=== PATIENT | female | born 1995 | race Caucasian/White ===

== ENCOUNTER 2017-04-17 04:15 | Inpatient (IN) | payer OTHER ==
[~2017-04-17] VITALS: Ht 180.3 cm; Wt 100.0 kg
[2017-04-17 04:23] VITALS: Ht 180.3 cm; Wt 100.0 kg
[2017-04-17] MEDS ORDERED: ONDANSETRON 4 MG INJ IV ONE (04:59)
--- NOTE | 2017-04-17 05:35 | ERD ---
ER Documentation Chief Complaint Chief Complaint Transferred from [place] for RUQ pain. HPI 21-year-old female transferred to [place] for biliary colic. Capitated to [facility]. Started symptomology 24 hours ago with right upper quadrant pain. Found to have gallstones. Mild nausea one episode of vomiting which is nonbilious. No other current issues ROS All systems reviewed and are negative except as per history of present illness. Allergies Allergies: Coded Allergies: No Known Allergy (Unverified , 04/17/17) PMhx/Soc Medical and Surgical Hx: pt denies Medical Hx, pt denies Surgical Hx Hx Alcohol Use: No Hx Substance Use: No Hx Tobacco Use: No Smoking Status: Never smoker Physical Exam Vitals Vital Signs Date Time Temp Pulse Resp B/P Pulse Ox O2 Delivery O2 Flow Rate FiO2 04/17/17 04:23 98.2 87 18 123/84 100 Physical Exam Const: [] Head: Atraumatic Eyes: Normal Conjunctiva ENT: Normal External Ears, Nose and Mouth. Neck: Full range of motion..~ No meningismus. Resp: Clear to auscultation bilaterally Cardio: Regular rate and rhythm, no murmurs Abd: Soft, non tender, non distended. Normal bowel sounds Skin: No petechiae or rashes Back: No midline or flank tenderness Ext: No cyanosis, or edema Neur: Awake and alert Psych: Normal Mood and Affect Results 24 hrs Current Medications Medications (Trade) Dose Ordered Sig/Andressa Route PRN Reason Start Time Stop Time Status Last Admin Dose Admin Ondansetron HCl (Zofran Inj) 4 mg ONCE ONCE IV 04/17/17 04:59 04/17/17 05:00 DC 04/17/17 05:02 Procedures/MDM Assessment: 23-year-old female That developed respiratory for biliary colic. Hospitalist made aware Departure Diagnosis: Primary Impression: Abdominal pain Abdominal location: unspecified location Qualified Code: R10.9 - Abdominal pain, unspecified abdominal location Condition: Serious BRITNEY ACKERMANCuco Apr 17, 2017 05:35
[2017-04-17 07:23] VITALS: BP 96/51; RESP 18
[2017-04-17] MEDS ORDERED: morphine 2 MG INJ IV PRN (10:00)
[2017-04-17] MEDS ORDERED: SOD CHLORIDE 0.9% 500 ML IV ONE (10:00)
--- NOTE | 2017-04-17 10:03 | HP ---
Date/Time of Note Date/Time of Note DATE: 04/17/17 TIME: 10:03 Assessment/Plan VTE Prophylaxis VTE Prophylaxis Intervention: ambulation, SCD's Lines/Catheters IV Catheter Type (from [facility]): Saline Lock Assessment/Plan Chief Complaint/Hosp Course This is a 21-year-old female with no significant past medical history, who presented to outside hospital for evaluation of right-sided abdominal pain with associated nausea and nonbilious, nonbloody vomiting which has been going on for 3 weeks. 1. Symptomatic cholelithiasis with possible acute cholecystitis. Outside hospital ultrasound showed cholelithiasis with mild gallbladder wall thickening. There was no evidence of choledocholithiasis. -Admit as inpatient -Obtain CT abdomen/pelvis. -Surgery consult. -N.p.o., IV fluids, pain control, antiemetics PRN and broad-spectrum IV antibiotics as there is high suspicion for acute cholecystitis. 2. Transaminase elevation, likely secondary to #1. No bilirubinemia. No evidence to suggest choledocholithiasis. 3. Anemia, this is likely dilutional. H&H stable. Will continue to monitor. Prophylaxis: SCD/Pepcid. Rest of the management depend on hospital course, findings of CT, and input from surgery consult recommendations. Approximately 60 minutes was spent on this history and physical. Patient was seen in collaboration with Dr. Torres. Problems: HPI/ROS Admit Date/Time Admit Date/Time Apr 17, 2017 at 05:09 Hx of Present Illness This is a 21-year-old female with no significant past medical history, who initially presented to [facility] for evaluation of right-sided abdominal pain with associated nausea and nonbilious, nonbloody vomiting which has been going on for 3 weeks. Patient was diagnosed with gallstones by ultrasound and was transferred to [facility] for insurance reasons. In my encounter with the patient, she denied any hematemesis, hematochezia, melena, fever, chills, dizziness, headache, loss of consciousness, chest pain, palpitation, shortness of breath or other constitutional symptoms. Currently she does not have any nausea or vomiting. She continued to have right-sided abdominal pain which she states 6 out of 10. Upon review of the chart from outside hospital showed stable vital signs. Ultrasound abdomen with multiple calcified gallstones with mild gallbladder wall thickening measuring up to 4 mm. There was no intrahepatic biliary dilatation. There is no pericholecystic fluid. Labs showed mildly elevated AST 36. There was no bilirubinemia. CBC and BMP within acceptable range. There was no leukocytosis. A repeat lab was done at [facility] showed hemoglobin 11.8, hematocrit 35.6, elevated AST 141 and ALT 131. ROS A 12 point review of system was assessed and is negative other than what is mentioned in the HPI. PMH/Family/Social Past Medical History See HPI Past Surgical History See HPI Social History Patient denied any history of alcohol, smoking or illicit drug use Smoking Status: Never smoker Exam/Review of Systems Vital Signs Vitals Vital Signs Date Time Temp Pulse Resp B/P Pulse Ox O2 Delivery O2 Flow Rate FiO2 04/17/17 07:23 98.0 85 18 96/51 98 Exam Exam General: Well developed,adequately built, not in any acute distress . HEENT: Normocephalic, Atraumatic, No laceration or hematoma; Eyes: PEERL, Conjunctiva clear, Anicteric sclera Neck: Supple without any lymphadenopathy, nontender, no JVD, no carotid bruits, trachea midline, no thyromegaly Cardiac: S1, S2 auscultated, regular rhythm and rate, no mumurs or gallop Pulmonary: Normal respiratory effort. Chest clear to auscultation bilaterally, no adventitious breath sounds GI: Tenderness to right upper and lower quadrant. No rebound tenderness. Abdomen normal to inspection. Soft, non- distended, no masses, no rebound tenderness or guarding. Bowel sounds active on all four quadrants Genitourinary: Deferred Extremities: No cyanosis, clubbing, or edema. Pulses [2+] bilaterally. Full ROM on all four extremities. No focal weakness appreciated. Neurologic: Alert to person, place, time, and situation. Affect appropriate, intact sensation. Skin: Clean,dry, and intact. No ecchymosis, no rashes, or lesions Medications Medications Current Medications Sodium Chloride 500 ml @ 500 mls/hr Q1H ONCE IV ; Start 04/17/17 at 10:00; Stop 04/17/17 at 10:59 Sodium Chloride (NS) 1,000 ml @ 75 mls/hr [id number] IV ; Start 04/17/17 at 10:00 Morphine Sulfate (morphine) 2 mg Q4H PRN IV PAIN; Start 04/17/17 at 10:00 SABRINA BECKWITH NP Apr 17, 2017 10:03
[2017-04-17] MEDS ORDERED: ACETAMINOPHEN 650 MG SUPP PR PRN (10:30)
[2017-04-17] MEDS ORDERED: NACL 0.9% 3 ML SYG IV SCH (10:30)
[2017-04-17] MEDS ORDERED: ONDANSETRON 4 MG INJ IV PRN (10:30)
[2017-04-17 11:16] LABS: BASOPHILS % 0.2 % (0.0-2.0); EOSINOPHILS % 0.6 % (0.0-7.0); HEMATOCRIT 35.6 % (37.0-47.0); HEMOGLOBIN 11.8 g/dl (12.0-16.0); LYMPHOCYTES # 1.3 10^3/ul (0.8-2.9); LYMPHOCYTES % 26.5 % (18.0-55.0); MEAN CORPUSCULAR HEMOGLOBIN 29.1 pg (29.0-33.0); MEAN CORPUSCULAR HGB CONC 33.1 g/dl (32.0-37.0); MEAN CORPUSCULAR VOLUME 87.7 fl (72.0-104.0); MONOCYTE # 0.4 10^3/ul (0.3-0.9); MONOCYTES % 8.4 % (0.0-13.0); NEUTROPHIL # 3.2 10^3/ul (1.6-7.5); NEUTROPHILS % 64.1 % (30.0-74.0); PLATELET COUNT 179 10^3/UL (140-415); RED BLOOD COUNT 4.06 10^6/ul (4.20-5.40); RED CELL DISTRIBUTION WIDTH 13.3 % (11.5-14.5)
[2017-04-17] MEDS: SOD CHLORIDE 0.9% 1,000 ML IV SCH ×2 (11:17→23:20)
[2017-04-17 11:37] LABS: ALBUMIN/GLOBULIN RATIO 1.37; BILIRUBIN,INDIRECT 0.6 mg/dl (0-1.1); BILIRUBIN,TOTAL 0.6 mg/dl (0.2-1.3); CALCIUM 9.2 mg/dl (8.4-10.2); CHOL/HDL RATIO 2.7 RATIO; CREATININE 0.68 mg/dl (0.44-1.00); MAGNESIUM 1.9 mg/dl (1.7-2.5); POTASSIUM 4.1 mmol/L (3.5-5.1); TOTAL PROTEIN 6.9 g/dl (6.1-8.1)
[2017-04-17 12:07] LABS: THYROID STIMULATING HORMONE 1.21 MIU/L (0.465-4.680)
--- NOTE | 2017-04-17 14:27 | RADRPT ---
PROCEDURE: CT ABDOMEN AND PELVIS WITHOUT CONTRAST. CLINICAL INDICATION: Abdominal pain TECHNIQUE: CT scan of the abdomen and pelvis without contrast was performed on a multidetector hig h-resolution CT scanner. The patient was scanned without intravenous contrast. Coronal and sagittal reformatted images were obtained from the axial source images. Images were reviewed on a high-resol [employer] PACS workstation. The total exam CTDI equals 19.3 mGy and the total exam DLP equals 1199.8 mGy -cm. One or more of the following dose reduction techniques were used: Automated exposure control. Adjustment of the mA and/or kV according to patient size. Use of iterative reconstruction technique. DICOM images are available COMPARISON: None FINDINGS: CT abdomen: The lung bases are clear. The heart size is within limits. There is no significant pericardial effus ion. Hepatic morphology is within limits. There is diffuse fatty infiltration of the liver. The gallbladd er is distended, containing cholesterol stones and pericholecystic fluid. There is thickening of the gallbladder wall. No evidence of intrahepatic dilatation. Common bile duct is normal size. The spleen and pancreas are within normal limits. Both adrenal glands are within normal limits. Both kidneys are in normal anatomic position. No evidence of obstruction or hydronephrosis. No gross renal/ureteric calculi. The visualized GI tract demonstrate normal caliber loops of small and large bowel. No evidence of mariela wel obstruction. The appendix is within normal limits. The unenhanced aorta is unremarkable. No significant retroperitoneal lymphadenopathy. CT pelvis: The bladder is within limits. The uterus is retroverted, containing a intrauterine device. No gross adnexal masses. Probable ovarian cysts. The rectosigmoid colon is unremarkable. No significant free fluid. No pelvic lymphadenopathy. The visualized osseous structures, appears to be within normal limits. IMPRESSION: 1. Distended gallbladder, containing cholesterol stones and pericholecystic fluid and thickening of the gallbladder wall. FINDINGS ARE HIGHLY CONCERNING FOR ACUTE CHOLECYSTITIS. No evidence of intrahe patic biliary dilatation. Common bile duct appears to be within normal limits. 2. Fatty liver. 3. No evidence of bowel obstruction. The appendix is within normal limits. 4. Retroverted uterus, containing IUD. RPTAT: AAPP Navarro Matson Physician Date Time Electronically viewed and signed by Navarro Matson Physician on 04/17/2017 14:26 JL/
[2017-04-17] MEDS: PIPER-TAZO 3.375 GM IV (PMX) 50 ML IVPB SCH ×2 (14:42→21:29)
[2017-04-17 16:20] VITALS: BP 109/59; PULSE 80; RESP 16
--- NOTE | 2017-04-17 19:01 | CONS ---
Date/Time of Note Date/Time of Note DATE: 04/17/17 TIME: 18:58 Assessment/Plan Assessment/Plan Additional Assessment/Plan Acute cholecystitis Plan: Laparoscopic cholecystectomy is recommended. I discussed the procedure, outcomes, expectations, alternatives and risks in detail with the patient who has an excellent understanding of the nature of her problem and agrees to the proposed plan of therapy as outlined. Consultation Date/Type/Reason Admit Date/Time Apr 17, 2017 at 05:09 Date of Consultation: Apr 17, 2017 Reason for Consultation Acute cholecystitis Hx of Present Illness The patient is an otherwise healthy 21-year-old female who was seen in the emergency room at [facility] yesterday where she was diagnosed with acute cholecystitis. She was transferred here for insurance reasons for continuance of care. She has had no fevers chills or jaundice. Her test is negative. Constitutional: no complaints Eyes: no complaints ENT: no complaints Respiratory: no complaints Cardiovascular: no complaints Gastrointestinal: pain (As in the HPI) Genitourinary: no complaints Musculoskeletal: no complaints Skin: no complaints Neurologic: no complaints Endocrine: no complaints Psychological: nl mood/affect, no complaints Past Medical History Medical History: no pertinent history Past Surgical History Past Surgical Hx: no surgical history Family History Significant Family History: no pertinent family hx Social History Smoking Status: Never smoker Exam/Review of Systems Vital Signs Vitals Vital Signs Date Time Temp Pulse Resp B/P Pulse Ox O2 Delivery O2 Flow Rate FiO2 04/17/17 16:20 98.4 80 16 109/59 99 Room Air Exam Constitutional: alert Psych: no complaints Head: normocephalic Eyes: nl conjunctiva ENMT: nl external ears & nose Respiratory: clear to auscultation Cardiovascular: regular rate and rhythm Gastrointestinal: tender (Tender right upper quadrant with a positive Ward sign) Musculoskeletal: nl extremities to inspection Extremities: normal pulses Neurological: TRENCHER DRIVER II-XII intact Skin: nl turgor Lymph: nl lymph nodes Results Result Diagram: 04/17/17 1035 04/17/17 1035 Results 24 hrs Laboratory Tests Test 04/17/17 10:35 04/17/17 11:28 White Blood Count 5.0 Red Blood Count 4.06 L Hemoglobin 11.8 L Hematocrit 35.6 L Mean Corpuscular Volume 87.7 Mean Corpuscular Hemoglobin 29.1 Mean Corpuscular Hemoglobin Concent 33.1 Red Cell Distribution Width 13.3 Platelet Count 179 Mean Platelet Volume 12.0 H Neutrophils % 64.1 Lymphocytes % 26.5 Monocytes % 8.4 Eosinophils % 0.6 Basophils % 0.2 Nucleated Red Blood Cells % 0.0 Neutrophils # 3.2 Lymphocytes # 1.3 Monocytes # 0.4 Eosinophils # 0.0 Basophils # 0.0 Nucleated Red Blood Cells # 0.0 Sodium Level 143 Potassium Level 4.1 Chloride Level 104 Carbon Dioxide Level 27 Anion Gap 16 Blood Urea Nitrogen 6 L Creatinine 0.68 Glucose Level 82 Hemoglobin A1c 5.0 Calcium Level 9.2 Magnesium Level 1.9 Total Bilirubin 0.6 Direct Bilirubin 0.00 Indirect Bilirubin 0.6 Aspartate Amino Transf (AST/SGOT) 141 H Alanine Aminotransferase (ALT/SGPT) 131 H Alkaline Phosphatase 84 Total Protein 6.9 Albumin 4.0 Globulin 2.90 Albumin/Globulin Ratio 1.37 Triglycerides Level 59 Cholesterol Level 100 LDL Cholesterol, Calculated 52 HDL Cholesterol 36 Cholesterol/HDL Ratio 2.7 Thyroid Stimulating Hormone (TSH) 1.210 Urine Test NEGATIVE Medications Medications Current Medications Sodium Chloride (NS) 1,000 ml @ 75 mls/hr [id number] IV Last administered on 11:17; Admin Dose 75 MLS/HR; Start 04/17/17 at 10:00 Morphine Sulfate (morphine) 2 mg Q4H PRN IV PAIN; Start 04/17/17 at 10:00 Ondansetron HCl (Zofran Inj) 4 mg Q6H PRN IV NAUSEA AND/OR VOMITING; Start at 10:30 Acetaminophen 650 mg 650 mg Q6H PRN [place] PAIN LEVEL 1-3 OR FEVER; Start at 10:30 Piperacillin Sod/ Tazobactam Sod (Zosyn 3.375gm/ 50 ml (Pmx)) 50 ml @ 100 mls/ hr Q8 IVPB Last administered on 04/17/17 14:42; Admin Dose 100 MLS/HR; Start 04/17/17 at 14:00 Famotidine (Pepcid Iv) 20 mg BID IV ; Start 04/17/17 at 21:00 LAM PÉREZ MD Apr 17, 2017 19:01
[2017-04-17 19:23] VITALS: BP 108/62; RESP 16
[2017-04-17] MEDS: FAMOTIDINE 20 MG INJ IV SCH (21:29)
[2017-04-18] VITALS (17 sets, daily range): BP systolic 112–144; BP diastolic 61–80; PULSE 101–146; RESP 15–21
[2017-04-18] MEDS: SOD CHLORIDE 0.9% 1,000 ML IV SCH ×2 (02:57→14:34)
[2017-04-18 05:23] LABS: BASOPHILS % 0.2 % (0.0-2.0); EOSINOPHILS # 0.1 10^3/ul (0.0-0.5); EOSINOPHILS % 0.8 % (0.0-7.0); HEMATOCRIT 34.2 % (37.0-47.0); HEMOGLOBIN 11.3 g/dl (12.0-16.0); LYMPHOCYTES # 1.4 10^3/ul (0.8-2.9); MEAN CORPUSCULAR VOLUME 87.7 fl (72.0-104.0); MEAN PLATELET VOLUME 12.2 fl (7.4-10.4); MONOCYTE # 0.3 10^3/ul (0.3-0.9); MONOCYTES % 5.4 % (0.0-13.0); NEUTROPHIL # 4.5 10^3/ul (1.6-7.5); NEUTROPHILS % 71.3 % (30.0-74.0); PLATELET COUNT 183 10^3/UL (140-415); RED CELL DISTRIBUTION WIDTH 13.2 % (11.5-14.5); WHITE BLOOD COUNT 6.3 10^3/ul (4.8-10.8)
[2017-04-18] MEDS: PIPER-TAZO 3.375 GM IV (PMX) 50 ML IVPB SCH ×3 (05:24→21:05)
[2017-04-18 05:34] LABS: CALCIUM 9.1 mg/dl (8.4-10.2); CREATININE 0.66 mg/dl (0.44-1.00); MAGNESIUM 1.8 mg/dl (1.7-2.5); POTASSIUM 3.8 mmol/L (3.5-5.1)
[2017-04-18] MEDS ORDERED: LABETALOL HCL 20MG INJ IV PRN (07:30)
[2017-04-18] MEDS ORDERED: EPHEDrine SULFATE 50 MG/5 ML SYG IV PRN (07:30)
[2017-04-18] MEDS ORDERED: HYDROmorphONE (0.2 MG/ML) 10ML SYG IV PRN ×3 (07:30)
[2017-04-18] MEDS ORDERED: ONDANSETRON 4 MG INJ IV PRN ×2 (07:30→09:00)
[2017-04-18] MEDS ORDERED: hydrALAzine 20 MG INJ IV PRN (07:30)
[2017-04-18] MEDS ORDERED: MEPERIDINE 25 MG INJ IV PRN (07:30)
[2017-04-18] MEDS ORDERED: OXYCODONE/ACETAMINOPHEN (5/325) TAB PO PRN ×4 (07:30→09:00)
[2017-04-18] MEDS ORDERED: DIPHENHYDRAMINE 50 MG INJ IV PRN (07:30)
[2017-04-18] MEDS ORDERED: METOCLOPRAMIDE 10 MG INJ IV PRN (07:30)
[2017-04-18] MEDS ORDERED: FENTAnyl 50 MCG/ML VIAL IV PRN ×3 (07:30)
[2017-04-18] MEDS ORDERED: MIDAZOLAM 1 MG/ML 2 ML INJ IV PRN (07:30)
[2017-04-18] MEDS ORDERED: BUPIVACAINE 0.25% (MPF) 30 ML INJ ONE (07:34)
[2017-04-18] MEDS ORDERED: ROCURONIUM 50 MG INJ ONE (07:37)
[2017-04-18] MEDS ORDERED: MEPERIDINE 100 MG INJ ONE (07:37)
[2017-04-18] MEDS ORDERED: LIDOCAINE 2% (SDV) 5 ML INJ ONE (07:37)
[2017-04-18] MEDS ORDERED: NEOSTIGMINE 3 MG/3 ML SYRINGE ONE ×2 (07:37→08:02)
[2017-04-18] MEDS ORDERED: GLYCOPYRROLATE 0.4 MG INJ ONE ×3 (07:37→08:02)
[2017-04-18] MEDS ORDERED: SUCCINYLCHOLINE CHLORIDE 100 MG/5 ML SYG IV ONE (07:37)
[2017-04-18] MEDS ORDERED: PROPOFOL 20 ML ONE (07:37)
[2017-04-18] MEDS ORDERED: ONDANSETRON 4 MG INJ ONE (08:02)
[2017-04-18] MEDS ORDERED: BUPIVACAINE 0.5%/EPI (SDV) 30 ML INJ ONE (08:02)
[2017-04-18] MEDS ORDERED: METOCLOPRAMIDE 10 MG INJ ONE (08:03)
--- NOTE | 2017-04-18 08:51 | OPR ---
Date/Time of Note Date/Time of Note DATE: 04/18/17 TIME: 08:46 Operative Report Procedure Date: Apr 18, 2017 Preoperative Diagnosis Acute cholecystitis Postoperative Diagnosis Acute suppurative cholecystitis with empyema of the gallbladder Operation/Procedure Performed Laparoscopic cholecystectomy Surgeon Lam Pérez MD Certified Welder None Anesthesia Type: general Anesthesiologist: ROEL DUMONT MD Estimated Blood Loss: 0 - 10 ml's Transfusion none Specimen Gallbladder Culture and sensitivity Grafts/Implants none Tubes/Drains None Complications none Pt Condition Post Procedure: stable Disposition: PACU Indications Acute cholecystitis Procedure Description After satisfactory general endotracheal anesthesia was achieved, the abdomen was prepped and draped in the usual fashion. The abdomen was insufflated with carbon dioxide through an umbilical Veress needle to 15 mmHg pressure. The Veress needle was removed and the umbilical incision extended to 5 mm through which a 5 mm trocar was placed. A 5 mm 0 lens was placed. Laparoscopy showed a massively distended erythematous gallbladder. Under direct visualization an 11 mm epigastric trocar was placed as well as 2 5 mm right lateral abdominal trochars. The dome of the gallbladder was grasped and retracted superiorly. Broussard's pouch was retracted inferiorly. The hepatoduodenal ligament was quite easily dissected between the gallbladder and the well-visualized aniket hepatis. The cystic duct was then triply hemoclipped and divided high at the junction of the gallbladder and the cystic duct. The cystic artery was triply hemoclipped and divided between clips. The gallbladder was then dissected from below with electrocautery and was fully intact. Attempt was made to place the gallbladder into an Endo Catch but the gallbladder was too large. The epigastric incision was extended to 4 cm including the fascia. The gallbladder was removed directly through the fascial opening. The gallbladder was filled with pus. It was cultured aerobically and anaerobically, and the gallbladder submitted. Hemostasis of the liver bed was excellent and irrigant returned clear. The abdomen was then desufflated and all trochars were removed. The fascia of the epigastrium was closed with 2 sutures of #1 Vicryl. The skin punctures were infiltrated with 30 cc of 0.25% Marcaine with epinephrine and closed with rojelio. Sponge and needle counts were reported as correct 2. LAM PÉREZ MD Apr 18, 2017 08:51
[2017-04-18] MEDS ORDERED: morphine 2 MG INJ IV PRN (09:00)
[2017-04-18] MEDS: FAMOTIDINE 20 MG INJ IV SCH ×2 (10:50→21:04)
--- NOTE | 2017-04-18 13:34 | PN ---
Date/Time of Note Date/Time of Note DATE: 04/18/17 TIME: 13:30 Assessment/Plan VTE Prophylaxis VTE Prophylaxis Intervention: SCD's Lines/Catheters IV Catheter Type (from [facility]): Peripheral IV Urinary Cath still in place: No Assessment/Plan Chief Complaint/Hosp Course Assessment and plan 1. Symptomatically cholelithiasis. Patient status post lap-garrett. Tolerated well. Continue with analgesics. Advance diet per surgeon. 2. Transaminitis likely secondary to #1. Improved at present. Continue with surgical conditions. Monitor for now. 3. Reported anemia. Stable at present. Will monitor for now. Disposition plan: Continue with analgesics. Continue with diet per surgeon. To be discharged within the next 24 hours if remains medically stable and cleared by surgeon Discussed plan of care with Dr. Torres Problems: Subjective 24 Hr Interval Summary Free Text/Dictation comfortable at this time Exam/Review of Systems Vital Signs Vitals Vital Signs Date Time Temp Pulse Resp B/P Pulse Ox O2 Delivery O2 Flow Rate FiO2 04/18/17 10:43 97.6 62 21 138/80 100 04/18/17 09:15 Room Air Intake and Output 04/17/17 04/17/17 04/18/17 15:00 23:00 07:00 Intake Total 500 ml 550 ml 750 ml Balance 500 ml 550 ml 750 ml Exam Constitutional: alert, oriented Head: normocephalic Eyes: nl conjunctiva Neck: non-tender, supple Respiratory: clear to auscultation Cardiovascular: regular rate and rhythm Gastrointestinal: soft, tender Musculoskeletal: nl extremities to inspection, nl gait and stance Extremities: normal pulses Neurological: SPACE ENGINEER II-XII intact, nl mental status, nl speech Skin: nl turgor, rash or lesions Results Result Diagram: 04/18/17 0434 04/18/17 0434 Results 24 hrs Laboratory Tests Test 04/18/17 04:34 White Blood Count 6.3 # Red Blood Count 3.90 L Hemoglobin 11.3 L Hematocrit 34.2 L Mean Corpuscular Volume 87.7 Mean Corpuscular Hemoglobin 29.0 Mean Corpuscular Hemoglobin Concent 33.0 Red Cell Distribution Width 13.2 Platelet Count 183 Mean Platelet Volume 12.2 H Neutrophils % 71.3 Lymphocytes % 22.0 Monocytes % 5.4 Eosinophils % 0.8 Basophils % 0.2 Nucleated Red Blood Cells % 0.0 Neutrophils # 4.5 Lymphocytes # 1.4 Monocytes # 0.3 Eosinophils # 0.1 Basophils # 0.0 Nucleated Red Blood Cells # 0.0 Sodium Level 145 H Potassium Level 3.8 Chloride Level 109 Carbon Dioxide Level 24 Anion Gap 16 Blood Urea Nitrogen 7 Creatinine 0.66 Glucose Level 66 #L Calcium Level 9.1 Phosphorus Level 4.0 Magnesium Level 1.8 Medications Medications Current Medications Sodium Chloride (NS) 1,000 ml @ 75 mls/hr [id number] IV Last administered on 02:57; Admin Dose 75 MLS/HR; Start 04/17/17 at 10:00 Morphine Sulfate (morphine) 2 mg Q4H PRN IV PAIN Last administered on 10:50; Admin Dose 2 MG; Start 04/17/17 at 10:00 Ondansetron HCl (Zofran Inj) 4 mg Q6H PRN IV NAUSEA AND/OR VOMITING; Start at 10:30 Acetaminophen 650 mg 650 mg Q6H PRN [place] PAIN LEVEL 1-3 OR FEVER; Start at 10:30 Piperacillin Sod/ Tazobactam Sod (Zosyn 3.375gm/ 50 ml (Pmx)) 50 ml @ 100 mls/ hr Q8 IVPB Last administered on 04/18/17 05:24; Admin Dose 100 MLS/HR; Start 04/17/17 at 14:00 Famotidine (Pepcid Iv) 20 mg BID IV Last administered on 04/18/17 10:50; Admin Dose 20 MG; Start 04/17/17 at 21:00; Stop 04/18/17 at 23:59 Oxycodone/ Acetaminophen (Percocet (5/ 325)) 1 tab Q4H PRN PO MILD PAIN (1-3); Start 04/18/17 at 09:00 Oxycodone/ Acetaminophen (Percocet (5/ 325)) 2 tab Q4H PRN PO MODERATE PAIN (4- 6); Start 04/18/17 at 09:00 Morphine Sulfate (morphine) 2 mg ONCE PRN IV SEVERE PAIN LEVEL 7-10; Start at 09:00; Stop 04/19/17 at 08:59 Ondansetron HCl (Zofran Inj) 4 mg Q6H PRN IV NAUSEA; Start 04/18/17 at 09:00 Famotidine (Pepcid) 20 mg BID PO ; Start 04/19/17 at 09:00 TABBY RAYA Apr 18, 2017 13:34
[2017-04-19] VITALS: BP 116/57; RESP 18
[2017-04-19] MEDS: PIPER-TAZO 3.375 GM IV (PMX) 50 ML IVPB SCH (05:15)
[2017-04-19] MEDS: SOD CHLORIDE 0.9% 1,000 ML IV SCH (05:15)
[2017-04-19 05:25] VITALS: BP 106/60; PULSE 86; RESP 17
[2017-04-19 05:57] LABS: BASOPHILS % 0.2 % (0.0-2.0); EOSINOPHILS # 0.1 10^3/ul (0.0-0.5); EOSINOPHILS % 0.8 % (0.0-7.0); HEMATOCRIT 33.7 % (37.0-47.0); HEMOGLOBIN 11.1 g/dl (12.0-16.0); LYMPHOCYTES # 1.7 10^3/ul (0.8-2.9); LYMPHOCYTES % 25.8 % (18.0-55.0); MEAN CORPUSCULAR HEMOGLOBIN 29.2 pg (29.0-33.0); MEAN CORPUSCULAR HGB CONC 32.9 g/dl (32.0-37.0); MEAN CORPUSCULAR VOLUME 88.7 fl (72.0-104.0); MEAN PLATELET VOLUME 11.9 fl (7.4-10.4); MONOCYTE # 0.4 10^3/ul (0.3-0.9); MONOCYTES % 6.7 % (0.0-13.0); NEUTROPHIL # 4.3 10^3/ul (1.6-7.5); NEUTROPHILS % 66.2 % (30.0-74.0); PLATELET COUNT 193 10^3/UL (140-415); RED CELL DISTRIBUTION WIDTH 13.2 % (11.5-14.5); WHITE BLOOD COUNT 6.6 10^3/ul (4.8-10.8)
[2017-04-19 06:33] LABS: ALBUMIN 3.5 g/dl (3.3-4.9); ALBUMIN/GLOBULIN RATIO 1.12; BILIRUBIN,INDIRECT 0.6 mg/dl (0-1.1); BILIRUBIN,TOTAL 0.6 mg/dl (0.2-1.3); CALCIUM 9.1 mg/dl (8.4-10.2); CREATININE 0.67 mg/dl (0.44-1.00); POTASSIUM 3.7 mmol/L (3.5-5.1); TOTAL PROTEIN 6.6 g/dl (6.1-8.1)
[2017-04-19 08:12] VITALS: BP 101/55; RESP 18
[2017-04-19] MEDS ORDERED: FAMOTIDINE 20 MG TAB PO SCH (09:00)
[2017-04-19] MEDS ORDERED: OXYC-438 PO (10:56)
[2017-04-19] MEDS ORDERED: SENN-53 PO (10:56)
[2017-04-19] MEDS ORDERED: CEPH500C PO (10:56)
--- NOTE | 2017-04-19 11:19 | PDOCDIS ---
Discharge Instructions DIAGNOSIS Discharge Diagnosis 1. Symptomatically cholelithiasis/cholecystitis 2. Transaminitis likely secondary to #1. 3. Reported anemia HOME CARE INSTRUCTIONS: Diet Instructions: Low Fat /Cholesterol FOLLOW UP/APPOINTMENTS Follow-up Plan 1. Follow up with Dr. Tera Her in one week TABBY RAYA Apr 19, 2017 11:19
--- NOTE | 2017-04-19 11:20 | PN ---
Date/Time of Note Date/Time of Note DATE: 04/19/17 TIME: 11:19 Assessment/Plan Lines/Catheters IV Catheter Type (from [facility]): Peripheral IV Crowley in Place (from [facility]): No Assessment/Plan Chief Complaint/Hosp Course The patient is an otherwise healthy 21-year-old female who was seen in the emergency room at [facility] yesterday where she was diagnosed with acute cholecystitis. She was transferred here for insurance reasons for continuance of care. She has had no fevers chills or jaundice. Her test is negative. Problems: Assessment/Plan Excellent recovery Cleared for discharge home today Subjective 24 Hr Interval Summary Postoperative day #1 Markedly symptomatically improved Abdominal examination benign LFTs normal Exam/Review of Systems Vital Signs Vitals Vital Signs Date Time Temp Pulse Resp B/P Pulse Ox O2 Delivery O2 Flow Rate FiO2 04/19/17 08:12 99.2 87 18 101/55 98 04/19/17 05:25 Room Air Intake and Output 04/18/17 04/18/17 04/19/17 15:00 23:00 07:00 Intake Total 600 ml 1125 ml 1225 ml Output Total 10 ml Balance 590 ml 1125 ml 1225 ml Results Result Diagram: 04/19/17 0507 04/19/17 0509 LAM PÉREZ MD Apr 19, 2017 11:20
--- NOTE | 2017-04-23 17:28 | DS ---
Date/Time of Note Date/Time of Note DATE: 04/23/17 TIME: 17:28 Discharge Summary Admission/Discharge Info Admit Date/Time Apr 17, 2017 at 05:09 Discharge Date/Time Apr 19, 2017 at 14:47 Discharge Diagnosis 1. Symptomatically cholelithiasis/cholecystitis 2. Transaminitis likely secondary to #1. 3. Reported anemia Patient Condition: Stable Consults 1. Dr. Tera Her Hospital Course This is a 21 year old female with no past medical history who came to [facility] from outside hospital due to insurance issue for right- sided abdominal pain with associated nausea and vomiting nonbilious nonbloody. She reported that this is been going on for 3 weeks. Of note she was diagnosed with gallstones by ultrasound at outside hospital. As such she was seen by surgeon at [facility]. She was noted with symptomatic cholelithiasis per imaging and did have laparoscopic cholecystectomy for which she did tolerate well. She was optimized with analgesics and we did advance her diet and she did tolerate well. She is otherwise optimized medically. She did have some anemia likely postop. This did remain stable. She was also seen her transaminitis and this did improve status post laparoscopic cholecystectomy. During the course states she did improve. The plan of care was discussed with the patient and patient did verbalize understanding. On the day of discharge patient was in stable condition Discussed plan of care of Dr. Torres [facility] Active Scripts Sennosides* (Senna Lax*) 8.6 Mg Tablet, 1 TAB PO Q12H Y for CONSTIPATION, #30 TAB Prov:TABBY RAYA 04/19/17 Cephalexin* (Cephalexin*) 500 Mg Capsule, 500 MG PO Q8, #21 CAP Prov:TABBY RAYA 04/19/17 Oxycodone HCl/Acetaminophen (Oxycodone-Acetaminophen 5-325) 1 Each Tablet, 1 TAB PO Q4H Y for MILD PAIN (1-3), #30 TAB Prov:TABBY RAYA 04/19/17 Follow-up Plan 1. Follow up with Dr. Tera Her in one week Primary Care Provider Not On Staff Doctor Time spent on discharge: > 30 minutes TABBY RAYA Apr 23, 2017 17:28
== END 2017-04-19 14:47 | disposition home or self-care (01) | DRG 419 ==
LOC: E/R 04:15 → MS1 05:09
PROVIDERS: ADMIT Internal Medicine; ATTEND Internal Medicine
PROC: 0FT44ZZ Resection of Gallbladder, Percutaneous Endoscopic Approach (ICD-10-PCS; principal; 2017-04-18 07:30)
DX: K80.00 Calculus of gallbladder with acute cholecystitis without obstruction (principal); D64.9 Anemia, unspecified
CPT/HCPCS: 74176; 80048; 80053; 80061; 83036; 83735; 84100; 84443; 84703; 85025; 87075; 88304; 96374; J2175; J2270; J2405; J2543; J2710; J2765; J7030; J7040